=== PATIENT | female | born 1960 | race Caucasian/White ===

== ENCOUNTER 2021-02-23 20:00 | Observation (INO) ==
[2021-02-23] MEDS ORDERED: Naloxone 0.4 MG/ML INJ IVP PRN (21:46)
[2021-02-23] MEDS ORDERED: Acetaminophen 325 MG TABLET PO PRN (21:57)
[2021-02-23] MEDS ORDERED: Ondansetron 4 MG/2 ML VIAL IVP PRN (21:57)
[2021-02-24] MEDS ORDERED: Losartan/HCTZ 50-12.5 TABLET PO SCH (09:00)
[2021-02-24] MEDS: *HR* Rivaroxaban 10 MG TABLET PO SCH (10:12)
[2021-02-24 10:55] LABS: Hematocrit 35.7 % (35.3-44.9); Mean Corpuscular HGB Conc 33.6 g/dL (31.6-35.5); Mean Corpuscular Hemoglobin 32.5 pg (28.0-33.3); Mean Corpuscular Volume 96.7 fL (83.0-100.0); Mean Platelet Volume 10.7 fL (9.4-12.4); Platelet Count 410 K/mcL (140-400); Red Blood Count 3.69 M/mcL (3.82-4.97); Red Cell Distribution Width 12.1 % (11.5-14.5); White Blood Count 10.6 K/mcL (4.3-11.1)
[2021-02-24 11:08] LABS: BUN/Creatinine Ratio 16 (6-26); Blood Urea Nitrogen 16 mg/dL (6-20); Calcium 9.7 mg/dL (8.6-10.3); Carbon Dioxide 28 mEq/L (23-29); Chloride 98 mEq/L (98-107); Glucose 95 mg/dL (70-105); Osmolality,Calculated 283 (280-300); Potassium 3.8 mEq/L (3.5-5.1); Sodium 136 mEq/L (136-145); eGFR For African Americans > 60 (> 60); eGFR For Non-African Americans 56 (> 60)
[2021-02-24] MEDS: *HR* HYDROcodone/Acet 5/325 mg TABLET PO PRN (21:16)
[2021-02-24] MEDS: 0.9 % Sodium Chloride 1,000 ML IVC SCH (21:50)
[2021-02-25] MEDS: *HR* HYDROcodone/Acet 5/325 mg TABLET PO PRN ×3 (06:02→20:35)
[2021-02-25] MEDS: 0.9 % Sodium Chloride 1,000 ML IVC SCH (06:16)
[2021-02-25] MEDS: *HR* Rivaroxaban 10 MG TABLET PO SCH (09:36)
[2021-02-26] MEDS: *HR* Rivaroxaban 10 MG TABLET PO SCH (08:23)
[2021-02-27] MEDS: *HR* HYDROcodone/Acet 5/325 mg TABLET PO PRN ×2 (00:26→21:38)
[2021-02-27] MEDS: *HR* Rivaroxaban 10 MG TABLET PO SCH (09:02)
[2021-02-28 07:39] VITALS: BP 123/79; PULSE 59; RESP 18; TEMP 98.4; O2SAT 99
[2021-02-28] MEDS: *HR* Rivaroxaban 10 MG TABLET PO SCH (09:49)
[2021-02-28] MEDS: *HR* HYDROcodone/Acet 5/325 mg TABLET PO PRN (11:45)
== END 2021-02-28 18:38 | disposition home health service (06) ==
LOC: INPPIK
PROVIDERS: ADMIT Family Medicine; ATTEND Family Medicine